=== PATIENT | female | born 1980 | race Caucasian/White ===

== ENCOUNTER 2023-02-18 10:18 | Inpatient (IN) | payer BC ==
[2023-02-17 13:43] LABS: Hemoglobin 11.2 g/dL (12.0-15.5); Platelet Count 282 10x3/uL (150-450)
[2023-02-17 14:00] LABS: Syphilis Antibody Nonreactive (Nonreactive); Syphilis Antibody Index 0.07 S/CO (<1.00 Non-Reactive)
[2023-02-17 14:01] LABS: HBSAg Index 0.12 S/CO (0-0.99); Hep B Surf Ag Non-Reactive S/CO (NonReactive)
[2023-02-18] MEDS ORDERED: Morphine PF 10 MG/10 ML VIAL ONE (11:02)
[2023-02-18] MEDS ORDERED: Phenylephrine 40 MG/NS 250 ML 250 ML ONE (11:03)
[2023-02-18] MEDS ORDERED: Ketorolac Tromethamine 30 MG/ML VIAL ONE (11:03)
[2023-02-18] MEDS ORDERED: PHENYLEPHRINE-NS 100 MCG/ML 10 ML SYRINGE ONE (11:03)
[2023-02-18] MEDS ORDERED: ePHEDrine Sulfate 50 MG/10 ML VIAL ONE (11:03)
[2023-02-18] MEDS ORDERED: Oxytocin 10 UNITS/ML VIAL ONE (11:03)
[2023-02-18] MEDS ORDERED: Ondansetron PF 4 MG/2 ML Vial ONE (11:03)
[2023-02-18] MEDS ORDERED: Promethazine HCl 25 MG SUPP PR PRN ×2 (11:15→17:15)
[2023-02-18] MEDS ORDERED: Naloxone HCl 0.4 mg/ml Vial IV PRN ×3 (11:15→17:15)
[2023-02-18] MEDS ORDERED: Communication Order-Pharmacy FS SCH (11:15)
[2023-02-18] MEDS ORDERED: Ondansetron PF 4 MG/2 ML Vial IVP PRN ×3 (11:15→17:15)
[2023-02-18] MEDS ORDERED: Promethazine HCl 25 MG/ML VIAL IM PRN ×3 (11:15→17:15)
[2023-02-18] MEDS ORDERED: Meperidine HCl/PF 25 MG/ML VIAL SLOW IVP PRN (11:15)
[2023-02-18] MEDS ORDERED: Fentanyl 100 MCG/2 ML VIAL SLOW IVP PRN ×2 (11:15→15:26)
[2023-02-18] MEDS ORDERED: Moisturizing Cream (Eucerin) 113 GM JAR TOP PRN ×2 (11:15→17:15)
[2023-02-18] MEDS ORDERED: diphenhydrAMINE 50 MG/ML VIAL IVP PRN ×2 (11:15→17:15)
[2023-02-18] MEDS ORDERED: Naloxone HCl 0.4 mg/ml Vial IVP PRN ×3 (11:15→17:15)
[2023-02-18] MEDS ORDERED: Ondansetron HCl/PF 4 MG/2 ML Vial IVP PRN (11:15)
[2023-02-18] MEDS ORDERED: CEFAZOLIN 2 GM VIAL ONE (11:48)
[2023-02-18] MEDS ORDERED: Famotidine/PF 20 mg/2ml Vial ONE (11:48)
[2023-02-18] MEDS ORDERED: Bicitra 30 ML UDCUP PO PRN (11:50)
[2023-02-18] MEDS ORDERED: hydrALAZINE 20 MG/ML VIAL SLOW IVP PRN ×2 (11:50→16:08)
[2023-02-18] MEDS ORDERED: Tranexamic Acid 1,000 MG/10 ML VIAL IVP PRN (11:50)
[2023-02-18] MEDS ORDERED: Carboprost 250 MCG/ML AMP IM PRN (11:50)
[2023-02-18] MEDS ORDERED: Famotidine/PF 20 mg/2ml Vial SLOW IVP PRN (11:50)
[2023-02-18] MEDS ORDERED: CEFAZOLIN 2 GM in Sodium Chloride 0.9% 100 ML IVPB SCH (11:50)
[2023-02-18] MEDS ORDERED: Lactated Ringer's 1,000 ML IV SCH (11:50)
[2023-02-18] MEDS ORDERED: NS w/ Oxytocin 30 units 500 ML IV SCH (11:50)
[2023-02-18] MEDS ORDERED: Misoprostol 200 MCG TAB PR PRN (11:50)
[2023-02-18] MEDS ORDERED: Diphenoxylate HCl/Atropine Tablet PO PRN ×2 (11:50)
[2023-02-18 11:57] VITALS: BMI 36.6
[2023-02-18] MEDS ORDERED: Fentanyl 100 MCG/2 ML VIAL ONE (15:31)
[2023-02-18] MEDS ORDERED: HYDROcodone/Acetaminophen 5/325 mg Tablet PO PRN ×2 (16:08)
[2023-02-18] MEDS ORDERED: Boostrix 0.5 ML (Tdap) VIAL (>/=7 yrs of age) IM ONE (16:08)
[2023-02-18] MEDS ORDERED: Zolpidem Tartrate 5 MG TAB PO PRN (16:08)
[2023-02-18] MEDS ORDERED: Simethicone Chewable 80 MG TAB PO PRN (16:08)
[2023-02-18] MEDS ORDERED: Acetaminophen 325 MG TAB PO PRN (16:08)
[2023-02-18] MEDS ORDERED: Bisacodyl 10 MG SUPP PR PRN (16:08)
[2023-02-18] MEDS ORDERED: diphenhydrAMINE 25 MG CAP PO PRN (16:08)
[2023-02-18] MEDS ORDERED: Lanolin Ointment 7 GM TUBE TOP PRN (16:08)
[2023-02-18] MEDS ORDERED: Ibuprofen 800 MG TAB PO SCH (17:00)
[2023-02-18] MEDS ORDERED: NO PO,IM,IV OR SC NARCOTICS FOR 12HR EXCEPT BY ANESTHESIA PO SCH (17:15)
[2023-02-18] MEDS ORDERED: Ketorolac Tromethamine 30 MG/ML VIAL IVP SCH (19:05)
[2023-02-18] MEDS ORDERED: Ketorolac Tromethamine 30 MG/ML VIAL IVP PRN (19:05)
[2023-02-18] MEDS: Docusate 100 MG CAP PO SCH (22:37)
[2023-02-19] MEDS: Ketorolac Tromethamine 30 MG/ML VIAL IVP PRN ×2 (03:23→10:15)
[2023-02-19 05:15] LABS: Hemoglobin 9.8 g/dL (12.0-15.5); Mean Corpuscular HGB CONC 32.1 g/dL (32.0-36.0); Mean Corpuscular Hemoglobin 29.3 pg (27.0-33.0); Mean Corpuscular Volume 91.3 fl (81.6-98.3); Mean Platelet Volume 10.4 fl (7.4-10.4); Platelet Count 233 10x3/uL (150-450); RBC Distribution Width 13.8 % (11.5-14.5); Red Blood Cell (RBC) Count 3.34 10x6/uL (3.90-5.03); White Blood Cell (WBC) Count 10.4 10x3/uL (3.5-10.5)
[2023-02-19] MEDS: Prenatal Vitamin 1 TAB PO SCH (08:26)
[2023-02-19] MEDS: Docusate 100 MG CAP PO SCH ×2 (08:26→20:10)
[2023-02-19] MEDS ORDERED: HYDROcodone/Acetaminophen 5/325 mg Tablet PO PRN (11:58)
[2023-02-19] MEDS: Ondansetron ODT 4 MG TAB PO PRN ×2 (15:59→20:10)
[2023-02-19] MEDS: Ibuprofen 800 MG TAB PO SCH (18:04)
[2023-02-19] MEDS: HYDROcodone/Acetaminophen 5/325 mg Tablet PO PRN (20:10)
[2023-02-20] MEDS: Ondansetron ODT 4 MG TAB PO PRN ×3 (01:36→10:04)
[2023-02-20] MEDS: HYDROcodone/Acetaminophen 5/325 mg Tablet PO PRN ×3 (01:36→10:00)
[2023-02-20] MEDS: Ibuprofen 800 MG TAB PO SCH ×2 (02:10→08:43)
[2023-02-20 07:42] VITALS: BP 109/61; TEMP 98.3
[2023-02-20] MEDS: Prenatal Vitamin 1 TAB PO SCH (08:42)
[2023-02-20] MEDS: Docusate 100 MG CAP PO SCH (08:44)
== END 2023-02-20 11:58 | disposition home or self-care (01) | DRG 788 ==
LOC: CSHLD 10:18 → CSHPP 15:51
PROVIDERS: ADMIT Obstetrics & Gynecology; ATTEND Obstetrics & Gynecology
PROC: 10D00Z1 Extraction of Products of Conception, Low, Open Approach (ICD-10-PCS; principal; 2023-02-18)
DX: O34.211 Maternal care for low transverse scar from previous cesarean delivery (principal); Z3A.38 38 weeks gestation of pregnancy; Z37.0 Single live birth; O40.3XX0 Polyhydramnios, third trimester, not applicable or unspecified; Z79.82 Long term (current) use of aspirin
CPT/HCPCS: 36415; 51702; 85014; 85018; 85027; 85049; 86780; 86850; 86900; 86901; 87340; J1200; J1885; J2274; J2405; J2590; J3010; Q0162; S0028